=== PATIENT | male | born 1935 | race Asian ===

== ENCOUNTER 2017-04-01 09:49 | Outpatient (CLI) | payer OTHER ==
[~2017-04-01 09:49] MED LIST: AMLO2.5T PO; ASA LO-DOSE81 MG PO; CLONIDINE0.3 MG PO; COZAAR100 MG PO; HYDR-3182 PO; HYDR25TA60 PO; LABETALOL200 MG PO; NOVOLOG MIX 70/30 SC; OMEPRAZOLE20 M1 PO; ONDA4TAB3 PO; SIMV40TA57; TEMA15CA19 PO; TRAM50TA PO; [UNRECOGNIZED DRUG - CODE] SC
== END 2017-04-01 10:50 | disposition home or self-care (01) ==
LOC: LABW 09:49
DX: D64.89 Other specified anemias (principal)
CPT/HCPCS: 82272; 82705; 87015; 87045; 87205; 87324; 87328; 87329; 87449; 87899

== ENCOUNTER 2017-10-07 13:22 | Outpatient (CLI) | payer OTHER | END 2017-10-08 13:22 | disposition home or self-care (01) | LOC: RAD 13:22 | DX: M79.671 Pain in right foot (principal) ==

== ENCOUNTER 2019-01-20 14:56 | Outpatient (CLI) | payer OTHER ==
[~2019-01-20 14:56] MED LIST changes: +AMBIEN5 MG PO; +AMLODIPINE BESYLATE PO; +FENOFIBRATE54 MG PO; +FURO20TA67 PO; +LEVOCETIRIZINE D5 MG PO; +LUMIGAN0.01 % IO
== END 2019-01-20 16:17 | disposition short-term general hospital (02) ==
LOC: AMB 14:56
DX: I61.3 Nontraumatic intracerebral hemorrhage in brain stem (principal); K21.9 Gastro-esophageal reflux disease without esophagitis; Z86.73 Personal history of transient ischemic attack (TIA), and cerebral infarction without residual deficits; I71.4 Abdominal aortic aneurysm, without rupture; E11.42 Type 2 diabetes mellitus with diabetic polyneuropathy; E11.22 Type 2 diabetes mellitus with diabetic chronic kidney disease; I12.9 Hypertensive chronic kidney disease with stage 1 through stage 4 chronic kidney disease, or unspecified chronic kidney disease; N18.4 Chronic kidney disease, stage 4 (severe)
CPT/HCPCS: A0425; A0429

== ENCOUNTER 2019-03-10 10:24 | Outpatient (CLI) | payer OTHER ==
[2019-03-10 10:42] LABS: PLATELET COUNT 416 K/uL (142-355)
[2019-03-10 10:50] LABS: POTASSIUM 3.2 mmol/L (3.6-5.2)
== END 2019-03-10 23:59 | disposition home or self-care (01) ==
LOC: LABW 10:24
PROVIDERS: Nurse Practitioner Family
DX: K92.2 Gastrointestinal hemorrhage, unspecified (principal)
CPT/HCPCS: 36415; 80053; 85027

== ENCOUNTER 2019-03-14 14:49 | Outpatient (CLI) | payer OTHER | END 2019-03-14 16:00 | disposition home or self-care (01) | LOC: LAB 14:49 | DX: K92.2 Gastrointestinal hemorrhage, unspecified (principal) | CPT/HCPCS: 82272 ==

== ENCOUNTER 2019-03-30 10:22 | Day surgery (SDC) | payer OTHER ==
[2019-03-30 11:22] LABS: PLATELET COUNT 261 K/uL (142-355)
== END 2019-03-30 14:20 | disposition home or self-care (01) ==
LOC: OR 10:22
PROVIDERS: Internal Medicine Gastroenterology
PROC: 0DJD8ZZ Inspection of Lower Intestinal Tract, Via Natural or Artificial Opening Endoscopic (ICD-10-PCS; principal; 2019-03-30)
DX: K64.8 Other hemorrhoids (principal); K92.2 Gastrointestinal hemorrhage, unspecified; D50.8 Other iron deficiency anemias
CPT/HCPCS: 80053; 85027; J2001; J2250; J2704

== ENCOUNTER 2019-05-11 10:40 | Day surgery (SDC) | payer OTHER | END 2019-05-11 16:00 | disposition home or self-care (01) | LOC: OR 10:40 | PROC: 0DBN8ZZ Excision of Sigmoid Colon, Via Natural or Artificial Opening Endoscopic (ICD-10-PCS; principal; 2019-05-11) | DX: K57.30 Diverticulosis of large intestine without perforation or abscess without bleeding (principal); K63.5 Polyp of colon; K64.8 Other hemorrhoids; K92.2 Gastrointestinal hemorrhage, unspecified; D50.8 Other iron deficiency anemias | CPT/HCPCS: J2001; J2405; J2704; J7060 ==

== ENCOUNTER 2019-11-16 10:53 | Outpatient (CLI) | payer OTHER | END 2019-11-16 22:56 | disposition home or self-care (01) | LOC: LABW 10:53 | DX: R05 Cough (principal); R50.9 Fever, unspecified | CPT/HCPCS: 87635; G2023; U0002 ==

== ENCOUNTER 2020-03-12 11:08 | Outpatient (CLI) | payer OTHER | END 2020-03-12 21:28 | disposition home or self-care (01) | LOC: RAD 11:08 | DX: R79.81 Abnormal blood-gas level (principal) ==

== ENCOUNTER 2020-03-14 12:53 | Outpatient (CLI) | payer OTHER | END 2020-03-14 21:30 | disposition home or self-care (01) | LOC: LAB 12:53 | DX: G47.09 Other insomnia (principal); I10 Essential (primary) hypertension; D64.89 Other specified anemias | CPT/HCPCS: 82272 ==

== ENCOUNTER 2020-04-27 09:08 | Outpatient (CLI) | payer OTHER ==
[2020-04-27 10:04] LABS: PLATELET COUNT 214 K/uL (142-355)
[2020-04-27 10:09] LABS: POTASSIUM 3.3 mmol/L (3.6-5.2)
== END 2020-04-28 03:34 | disposition home or self-care (01) ==
LOC: RESP 09:08
PROVIDERS: Specialist
DX: I71.2 Thoracic aortic aneurysm, without rupture (principal); R00.2 Palpitations; R94.31 Abnormal electrocardiogram [ECG] [EKG]; N18.3 Chronic kidney disease, stage 3 (moderate); I12.9 Hypertensive chronic kidney disease with stage 1 through stage 4 chronic kidney disease, or unspecified chronic kidney disease
CPT/HCPCS: 36415; 80069; 81000; 82565; 82570; 83883; 84155; 85027; 86038; 93225

== ENCOUNTER 2020-05-01 08:07 | Outpatient (CLI) | payer OTHER ==
[~2020-05-01] VITALS: Ht 177.8 cm; Wt 88.0 kg
== END 2020-05-02 00:19 | disposition home or self-care (01) ==
LOC: NM 08:07
DX: I71.2 Thoracic aortic aneurysm, without rupture (principal); R00.2 Palpitations; R94.31 Abnormal electrocardiogram [ECG] [EKG]
CPT/HCPCS: A9500; J2785

== ENCOUNTER 2021-03-26 14:43 | Emergency (ER) | payer OTHER ==
[~2021-03-26] VITALS: Ht 177.8 cm; Wt 88.0 kg
== END 2021-03-26 16:10 | disposition expired ==
LOC: ED 14:43
PROC: 5A12012 Performance of Cardiac Output, Single, Manual (ICD-10-PCS; principal; 2021-03-26)
DX: I46.9 Cardiac arrest, cause unspecified (principal)
CPT/HCPCS: 92950; 96360; 96375; 99285; 99291; J0171; J0461